=== PATIENT | female | born 1960 | race Hispanic/Latino ===

== ENCOUNTER 2017-12-31 10:18 | Outpatient (CLI) | payer BC ==
--- NOTE | 2018-01-01 12:01 | MMO ---
BILATERAL MAMMOGRAMS: DATE: 12/31/17 HISTORY: Screening mammography. COMPARISON: Multiple exams back to 01/08/14. FINDINGS: Scattered fibroglandular densities and benign-appearing calcifications. No dominant mass or suspiciou s calcifications. The study was evaluated with the assistance of computer-aided detection. IMPRESSION: BIRADS 1: Negative Suggest routine follow-up. POS: [facility]
== END 2017-12-31 10:19 | disposition home or self-care (01) ==
LOC: SCSMAMMO 10:18
PROVIDERS: ATTEND Internal Medicine
DX: Z12.31 Encounter for screening mammogram for malignant neoplasm of breast (principal)
CPT/HCPCS: 77067

== ENCOUNTER 2019-01-03 07:05 | Outpatient (CLI) | payer BC ==
--- NOTE | 2019-01-03 08:15 | ULT ---
SONOGRAM RIGHT UPPER QUADRANT: HISTORY: Abnormal liver function tests. FINDINGS: Gallbladder has a normal appearance. No stones visible. The common duct is 0.4 cm. Liver is diffus alesha echogenic without focal mass or intrahepatic biliary dilatation. No free fluid. IMPRESSION: 1. Hepatosteatosis. 2. No evidence of gallstones or biliary obstruction. POS: [facility]
== END 2019-01-03 07:06 | disposition home or self-care (01) ==
LOC: SCSULT 07:05
PROVIDERS: ATTEND Internal Medicine Rheumatology
DX: R74.8 Abnormal levels of other serum enzymes (principal); K76.0 Fatty (change of) liver, not elsewhere classified
CPT/HCPCS: 76705

== ENCOUNTER 2020-09-22 15:25 | Outpatient (CLI) | payer BC | END 2020-09-22 15:26 | disposition home or self-care (01) | LOC: BICRAD 15:25 | PROVIDERS: ATTEND Internal Medicine Rheumatology | DX: M25.552 Pain in left hip (principal); M16.12 Unilateral primary osteoarthritis, left hip ==